=== PATIENT | female | born 1970 | race American Indian/Alaskan Native ===

== ENCOUNTER 2017-05-27 17:30 | Inpatient (IN) | payer OTHER ==
--- NOTE | 2017-05-27 18:10 | XRay Report ---
FINAL REPORT EXAM: XR CHEST ROUTINE 2V HISTORY: Shortness of breath COMPARISON: None available. FINDINGS:: Frontal and lateral views of the chest obtained. Cardiac silhouette is within normal limits. No focal consolidation or effusion. No pneumothorax. Visualized bony thorax is grossly intact. IMPRESSION:: No acute findings.
[2017-05-27 18:32] LABS: Basophils % (Auto) 0.7 % (0.0-1.8); Eosinophils # (Auto) 0.3 K/mm3 (0.0-0.4); Eosinophils % (Auto) 4.8 % (0.0-4.3); Hematocrit 30.1 % (30.3-42.9); Hemoglobin 9.2 gm/dl (10.1-14.3); Lymphocytes # (Auto) 1.3 K/mm3 (1.2-5.4); Lymphocytes % (Auto) 22.7 % (13.4-35.0); Mean Corpuscular HGB Conc 31 % (30-34); Monocytes # (Auto) 0.5 K/mm3 (0.0-0.8); Monocytes % (Auto) 8.6 % (0.0-7.3); Platelet Count 308 K/mm3 (140-440); Red Blood Count 4.94 M/mm3 (3.65-5.03)
[2017-05-27 18:39] LABS: BUN/Creatinine Ratio 17; Blood Urea Nitrogen 12 mg/dL (7-17); Calcium 8.8 mg/dL (8.4-10.2); Hemolysis Index 2
[2017-05-27 18:45] LABS: Mean Corpuscular Hemoglobin 19 pg (28-32); Mean Corpuscular Volume 61 fl (79-97); Red Cell Distribution Width 20.8 % (13.2-15.2)
--- NOTE | 2017-05-27 21:04 | Emergency Department Report ---
HPI - General Chief Complaint: Dyspnea/Respdistress Time Seen by Provider: 05/27/17 20:47 - HPI HPI: Room 6 The patient is a 46-year-old female presenting with chief complaint of shortness of breath. The patient states today at noon while at rest she began feeling short of breath. The patient states her shortness breath is constant. Patient denies chest pain/discomfort. Patient denies cough or fever. Patient denies any recent flights or long car trips. The patient states she's never had a similar episode before. Patient currently feels tired, restless states she cannot take a full breath. Location: Lungs, see above Duration: Constant since noon Quality: Shortness of breath Severity: Moderate Modifying factors: [see above] Context: [see above] Mode of transportation: [not driving] ED Past Medical Hx - Surgical History Past Surgical History?: No Additional Surgical History: - Family History Family history: no significant - Social History Smoking Status: Never Smoker Substance Use Type: None (denies illicit drug use) ED Review of Systems ROS: Stated complaint: BRIAN Other details as noted in HPI Constitutional: denies: fever Respiratory: shortness of breath. denies: cough Cardiovascular: denies: chest pain Physical Exam - Physical Exam Vital Signs: Vital Signs 05/27/17 17:35 Temperature 97.7 F Pulse Rate 78 Respiratory 18 Rate Blood Pressure 121/91 O2 Sat by Pulse 99 Oximetry Physical Exam: GENERAL: The patient is well-developed well-nourished female lying on stretcher not appearing to be in acute distress. [] HEENT: Normocephalic. Atraumatic. Extraocular motions are intact. Patient has moist mucous membranes. NECK: Supple. Trachea midline CHEST/LUNGS: Clear to auscultation. There is no respiratory distress noted. HEART/CARDIOVASCULAR: Regular. There is no tachycardia. There is no gallop rub or murmur. ABDOMEN: Abdomen is soft, nontender. Patient has normal bowel sounds. There is no abdominal distention. SKIN: There is no rash. There is no diaphoresis. NEURO: The patient is awake, alert, and oriented. The patient is cooperative. The patient has normal speech MUSCULOSKELETAL: There is no evidence of acute injury. ED Course Vital Signs 05/27/17 17:35 Temperature 97.7 F Pulse Rate 78 Respiratory 18 Rate Blood Pressure 121/91 O2 Sat by Pulse 99 Oximetry - Consultations Consultation #1: 05/27/17 22:24 [facility] paged 05/27/17 22:[address] Desai of [facility] rob to admit the patient at [facility] ED Medical Decision Making - Lab Data Result diagrams: 05/27/17 18:09 05/27/17 18:09 Laboratory Tests 05/27/17 05/27/17 05/27/17 18:09 18:09 20:56 WBC 5.8 RBC 4.94 Hgb 9.2 L Hct 30.1 L MCV 61 L MCH 19 L MCHC 31 RDW 20.8 H Plt Count 308 Lymph % (Auto) 22.7 [place] % (Auto) 8.6 H Eos % (Auto) 4.8 H Baso % (Auto) 0.7 Lymph # 1.3 [place] # 0.5 Eos # 0.3 Baso # 0.0 Seg Neutrophils % 63.2 Seg Neutrophils # 3.7 Sodium 139 Potassium 3.8 Chloride 99.2 Carbon Dioxide 31 H Anion Gap 13 BUN 12 Creatinine 0.7 Estimated GFR > 60 BUN/Creatinine Ratio 17 Glucose 155 H Calcium 8.8 Total Creatine Kinase 102 CK-MB (CK-2) 1.2 CK-MB (CK-2) Rel Index 1.1 Troponin T < 0.010 NT-Pro-B Natriuret Pep < 5 - EKG Data -: EKG Interpreted by Me EKG shows normal: sinus rhythm Rate: normal - EKG Data When compared to previous EKG there are: previous EKG unavailable Interpretation: nonspecific ST-T wave parish (biphasic T-wave in lead V4, V5), subendocardial ischemia (? ST depressions 1 mm in leads 2, 3, aVF) - Radiology Data Radiology results: report reviewed (chest x-ray, CT chest), image reviewed ( chest x-ray, CT chest) interpreted by me: Chest x-ray-no focal infiltrates, no pneumothorax [facility] [address] [place] [address] Cat Scan Report Signed Patient: KARY VALERA MR#: [id number] : 1970 Acct:[id number] Age/Sex: 46 / F ADM Date: 05/27/17 Loc: ED Attending Dr: Ordering Physician: DORA CORDOVA MD Date of Service: 05/27/17 Procedure(s): CT angio chest Accession Number(s): [id number] cc: DORA CORDOVA MD FINAL REPORT EXAM: CT ANGIO CHEST HISTORY: shortness of breath COMPARISON: Chest x-ray from the same date. TECHNIQUE: Contiguous axial images were obtained. Additional sagittal and coronal reformatted images were obtained. Administration of IV contrast given per institution protocol. Images submitted for interpretation. 100 cc Omnipaque 350. Max intensity projection images. FINDINGS: Heart borderline enlarged. Thoracic aorta is normal in caliber. The ascending thoracic aorta measures 3.4 centimeters in diameter. No dissection or rupture of the thoracic aorta. Suboptimal timing of contrast bolus. No large central pulmonary embolus. No pathologically enlarged intrathoracic or axillary lymph nodes. Tracheobronchial tree is patent. Mild linear atelectasis at the lung bases. No focal consolidation or pleural effusion. Mild degenerative changes of the thoracic spine. Mild nodular thickening of adrenal glands. Trace fluid in the esophagus concerning for reflux. IMPRESSION: Suboptimal timing of contrast bolus. No large central pulmonary embolus. Mild linear atelectasis at the lung bases. No acute infiltrates or effusions. Transcribed By: LMA Dictated By: GENOVEVA PEGUERO MD Electronically Authenticated By: GENOVEVA PEGUERO MD Signed Date/Time: 05/27/172208 DD/ 08 TD/TT: 05/27/172208 - Differential Diagnosis ACS, PE, pneumonia, bronchitis, CHF Critical care attestation.: If time is entered above; I have spent that time in minutes in the direct care of this critically ill patient, excluding procedure time. ED Disposition Clinical Impression: Shortness of breath, ST segment depression Disposition: OP ADMIT IP TO THIS HOSP Is pt being admited?: Yes Does the pt Need Aspirin: Yes Condition: Stable Referrals: [facility] [Other] - 3-5 Days Time of Disposition: 22:58 (hospitalist paged (Dr. Jana Miller))
[2017-05-27] MEDS ORDERED: XOPENEX IH ONE (21:23)
[2017-05-27] MEDS ORDERED: ATROVENT IH ONE (21:23)
[2017-05-27] MEDS ORDERED: ASPIRIN PO ONE (21:24)
[2017-05-27] MEDS ORDERED: NACL ONE (21:26)
[2017-05-27 21:29] LABS: Creatine Kinase MB 1.2 ng/mL (0.0-4.0)
--- NOTE | 2017-05-27 22:13 | Cat Scan Report ---
FINAL REPORT EXAM: CT ANGIO CHEST HISTORY: shortness of breath COMPARISON: Chest x-ray from the same date. TECHNIQUE: Contiguous axial images were obtained. Additional sagittal and coronal reformatted images were obtained. Administration of IV contrast given per institution protocol. Images submitted for interpretation. 100 cc Omnipaque 350. Max intensity projection images. FINDINGS: Heart borderline enlarged. Thoracic aorta is normal in caliber. The ascending thoracic aorta measures 3.4 centimeters in diameter. No dissection or rupture of the thoracic aorta. Suboptimal timing of contrast bolus. No large central pulmonary embolus. No pathologically enlarged intrathoracic or axillary lymph nodes. Tracheobronchial tree is patent. Mild linear atelectasis at the lung bases. No focal consolidation or pleural effusion. Mild degenerative changes of the thoracic spine. Mild nodular thickening of adrenal glands. Trace fluid in the esophagus concerning for reflux. IMPRESSION: Suboptimal timing of contrast bolus. No large central pulmonary embolus. Mild linear atelectasis at the lung bases. No acute infiltrates or effusions.
--- NOTE | 2017-05-27 23:39 | History and Physical Report ---
History of Present Illness Date of examination: 05/28/17 History of present illness: 46-year-old woman with no medical problems comes emergency room today complaining of shortness of breath, dizziness and felt as if she was on the pass out Review Of Systems: Constitutional: no weight loss Ears, eyes, nose, mouth and throat: no nasal congestion, no nasal discharge, no sinus pressure, blurry vision, diplopia Neck: No neck pain or rigidity. Cardiovascular: no Chest pain, orthopnea, palpitations Respiratory: No cough Gastrointestinal: no hematochezia, abdominal pain Genitourinary : no dysuria, frequency , hematuria Musculoskeletal: no muscle ache Integumentary: no rash, no pruritis Neurological: no parathesias, focal weakness Endocrine: no cold or heat intolerance, no polyuria or polydipsia Hematologic/Lymphatic: no easy bruising, no easy bleeding, no gland swelling Allergic/Immunologic: no urticaria, no angioedema. PAST MEDICAL HISTORY: None PAST SURGICAL HISTORY: None SOCIAL HISTORY: Denies alcohol, tobacco, drug FAMILY HISTORY: Hypertension Medications and Allergies Allergies Allergy/AdvReac Type Severity Reaction Status Date / Time No Known Allergies Allergy Unverified 05/27/17 17:40 Exam - Physical Exam Narrative exam: Gen. appearance: Patient lying in bed, no apparent distress HEENT: Normocephalic, atraumatic, pupils equally round and reactive to light, extraocular movement intact, and no sclericterus,. No JVD or thyromegaly or nodule,neck supple, no carotid bruit ,mucous membranes moist, no exudate or erythema Heart: S1, S2, regular rate and rhythm Lungs: Clear to auscultation bilaterally, breathing comfortable Abdomen: Positive bowel sounds, nontender, nondistended, no organomegaly Extremity: No edema, cyanosis, clubbing Skin: No rash, nodules, warm, dry Neuro: Oriented 3, cranial nerves II-12 intact, speech is fluent, motor and sensory intact - Constitutional Vitals: Temp Pulse Resp BP Pulse Ox 98.7 F 83 15 123/55 98 05/27/17 21:00 05/27/17 21:55 05/27/17 21:55 05/27/17 21:01 05/27/17 21:01 Results - Labs CBC & Chem 7: 05/27/17 18:09 05/27/17 18:09 Labs: Abnormal lab results 05/27/17 05/27/17 Range/Units 18:09 18:09 Hgb 9.2 L (10.1-14.3) gm/dl Hct 30.1 L (30.3-42.9) % MCV 61 L (79-97) fl MCH 19 L (28-32) pg RDW 20.8 H (13.2-15.2) % [place] % (Auto) 8.6 H (0.0-7.3) % Eos % (Auto) 4.8 H (0.0-4.3) % Carbon Dioxide 31 H (22-30) mmol/L Glucose 155 H (65-100) mg/dL - Imaging and Cardiology EKG: image reviewed Chest x-ray: image reviewed CT scan - chest: report reviewed Assessment and Plan Assessment Near syncope Plan Admit to medicine Check cardiac enzymes, stress test DVT prophylaxis
[2017-05-28] MEDS ORDERED: TYLENOL PO PRN (00:32)
[2017-05-28] MEDS ORDERED: SODIUM CHLORIDE FLUSH SYRINGE 10 ML IV PRN (00:32)
[2017-05-28] MEDS ORDERED: PERCOCET 5/325 PO PRN (00:32)
[2017-05-28] MEDS ORDERED: ZOFRAN IV PRN (00:32)
[2017-05-28 01:32] LABS: Creatine Kinase MB 1.4 ng/mL (0.0-4.0)
[2017-05-28 05:41] LABS: Basophils % (Auto) 0.5 % (0.0-1.8); Eosinophils # (Auto) 0.3 K/mm3 (0.0-0.4); Eosinophils % (Auto) 5.7 % (0.0-4.3); Hematocrit 29.3 % (30.3-42.9); Hemoglobin 9.2 gm/dl (10.1-14.3); Lymphocytes # (Auto) 2.2 K/mm3 (1.2-5.4); Lymphocytes % (Auto) 44.4 % (13.4-35.0); Mean Corpuscular HGB Conc 32 % (30-34); Monocytes # (Auto) 0.6 K/mm3 (0.0-0.8); Platelet Count 265 K/mm3 (140-440); Red Blood Count 4.87 M/mm3 (3.65-5.03)
[2017-05-28 06:01] LABS: Mean Corpuscular Hemoglobin 19 pg (28-32); Mean Corpuscular Volume 60 fl (79-97); Red Cell Distribution Width 20.6 % (13.2-15.2)
[2017-05-28 06:06] LABS: BUN/Creatinine Ratio 15; Blood Urea Nitrogen 9 mg/dL (7-17); Calcium 8.1 mg/dL (8.4-10.2); Hemolysis Index 0
[2017-05-28 06:10] LABS: Creatine Kinase MB 1.3 ng/mL (0.0-4.0)
[2017-05-28] MEDS ORDERED: LOVENOX SUB-Q SCH (10:00)
[2017-05-28] MEDS ORDERED: SODIUM CHLORIDE FLUSH SYRINGE 10 ML IV SCH (10:00)
--- NOTE | 2017-05-28 10:45 | Treadmill Report ---
This is a stress test report. The patient exercised for 8 minutes of a Adalid protocol, reaching stage 3 and achieving 9 mets. Peak heart rate was 160 beats per minute. Peak blood pressure was 176/92. There was no chest pain. Test was stopped for fatigue. Baseline ECG was normal sinus rhythm. With exercise, there were no ST changes of ischemia. No significant dysrhythmias were noted. CONCLUSION: 1. Very good exercise capacity. 2. No chest pain. 3. No ST changes of ischemia. 4. No significant dysrhythmias. 5. This is a normal exercise ECG test. JOB# [id number] CA/NTS
--- NOTE | 2017-05-28 10:46 | Discharge Summary ---
Providers - Providers Date of Admission: 05/27/17 23:38 Date of discharge: 05/28/17 Attending physician: JOSE GARCIA Hospitalization Reason for admission: presyncope Condition: Stable Hospital course: This is a 46-year-old female presented through the emergency department with complaints of symptoms associated with diagnosis presyncope. Patient underwent workup with stress thallium, echocardiogram and carotid ultrasound. Patient was noted to have an abnormal EKG with ST depressions 1 mm in leads 2, 3, aVF. Cardiac isoenzymes were found to be negative. If the stress test and carotid ultrasound are negative patient will be discharged home. Echocardiogram can be followed up with Teddy as an outpatient. Dedicated discharge time 32 minutes. Disposition: - TO HOME OR SELFCARE Time spent for discharge: 32 Core Measure Documentation - Palliative Care Palliative Care/ Comfort Measures: Not Applicable - Core Measures Any of the following diagnoses?: none Exam - Constitutional Vitals: Temp Pulse Resp BP Pulse Ox 98.7 F 92 H 20 134/86 98 05/28/17 06:37 05/28/17 06:41 05/28/17 06:37 05/28/17 06:41 05/28/17 06:41 General appearance: Present: no acute distress, well-nourished - EENT Eyes: Present: PERRL ENT: hearing intact, clear oral mucosa - Neck Neck: Present: supple, normal ROM - Respiratory Respiratory effort: normal Respiratory: bilateral: CTA - Cardiovascular Heart Sounds: Present: S1 & S2. Absent: rub, click - Extremities Extremities: pulses symmetrical, No edema Peripheral Pulses: within normal limits - Abdominal General gastrointestinal: Present: soft, non-tender, non-distended, normal bowel sounds Female genitourinary: Present: normal - Integumentary Integumentary: Present: clear, warm, dry - Musculoskeletal Musculoskeletal: gait normal, strength equal bilaterally - Psychiatric Psychiatric: appropriate mood/affect, intact judgment & insight - Neurologic Neurologic: CNII-XII intact, moves all extremities Plan Activity: no restrictions Weight Bearing Status: Full Weight Bearing Diet: regular Follow up with: [facility] [Other] - 3-5 Days
[2017-05-28 12:22] VITALS: BP 139/79
== END 2017-05-28 17:33 | disposition home or self-care (01) | DRG 312 ==
LOC: ED 17:30 → 4A 23:38
PROVIDERS: ADMIT Internal Medicine; ATTEND Hospitalist
DX: R55 Syncope and collapse (principal); R94.31 Abnormal electrocardiogram [ECG] [EKG]; R06.02 Shortness of breath; Z82.49 Family history of ischemic heart disease and other diseases of the circulatory system
CPT/HCPCS: 36415; 71046; 71275; 80048; 82550; 82553; 83880; 84484; 85025; 93005; 93010; 93017; 93306; 93880; 94640; Q9967